=== PATIENT | male | born 1990 | race Caucasian/White ===

== ENCOUNTER 2023-02-02 13:57 | Emergency (ER) | payer SELFPAY ==
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
[2023-02-02] MEDS ORDERED: KETOROLAC 30 MG/ML INJ ONE (15:50)
[2023-02-02 16:26] VITALS: BP 141/98; TEMP 97.8; O2SAT 97
== END 2023-02-02 16:16 | disposition home or self-care (01) ==
LOC: ER 13:57
DX: M25.572 Pain in left ankle and joints of left foot (principal); S82.452 Displaced comminuted fracture of shaft of left fibula; K59.00 Constipation, unspecified
CPT/HCPCS: 96372; 99284

== ENCOUNTER → 2023-07-16 | Emergency (ER) | payer SELFPAY ==
[~2023-07-16] MED LIST: FENTANYL CITR 100 MCG/2 ML ONE; MORPHINE 4 MG/ML SYR ONE; ONDANSETRON 4 MG/2 ML VIAL ONE
--- OUTSIDE RECORDS SUMMARY | 2023-07-16 19:49 | XMS REPORT | Continuity of Care Document ---
Author Name Unknown Address [address] [facility] [facility] [place] [id number] [facility] thconnect Address [address] [facility] [place] [address] Care Team Providers Care Network Design Architect Name Role Phone SRINI MARQUEZ Attending Clinician Unavailable Encounters Start Date/Time End Date/Time Encounter Type Admission Type Attending Clinicians Care Facility Care Department Encounter ID Source 2020-07-22 15:15:00 2020-07-22 19:12:00 Emergency E SRINI MARQUEZ [facility] [id number] [facility]
--- NOTE | 2023-07-16 20:24 | ER ---
Nurse's Notes [facility] Name: Robbin Harris Age: 32 yrs Sex: Male : 1990 Arrival Date: 07/16/2023 Time: 19:45 Bed 13 Private MD: Diagnosis: Laceration to left radial artery Presentation: 07/16 19:51 Chief complaint: Patient states: I was playing with my knife and accidentally cut my jb4 wrist. Arterial bleed noted. Pressure dressing applied. Coronavirus screen: At this time, the client does not indicate any symptoms associated with coronavirus-19. Ebola Screen: No symptoms or risks identified at this time. Complicating Factors: There are no complicating factors for this patient. Initial Sepsis Screen: Does the patient meet any 2 criteria? No. Patient's initial sepsis screen is negative. Does the patient have a suspected source of infection? No. Patient's initial sepsis screen is negative. Risk Assessment: Do you want to hurt yourself or someone else? Patient reports no desire to harm self or others. Onset of symptoms was July 16, 2023. Transition of care: patient was not received from another setting of care. 19:51 Method Of Arrival: Ambulatory jb4 19:51 Acuity: YAZMIN 3 jb4 Historical: - Allergies: 19:52 No Known Allergies; jb4 - PMHx: 19:52 None; jb4 - PSHx: 19:52 None; jb4 - Immunization history:: Adult Immunizations unknown. - Social history:: Smoking status: Patient reports the use of cigarette tobacco products, Patient uses alcohol, patient/guardian reports recent binge of alcohol consumption. - Family history:: not pertinent. Screenin:17 [facility] ED Fall Risk Assessment (Adult) History of falling in the last 3 months, me1 including since admission No falls in past 3 months (0 pts) Confusion or Disorientation No (0 pts) Intoxicated or Sedated No (0 pts) Impaired Gait No (0 pts) Mobility Assist Device Used No (0 pt) Altered Elimination No (0 pt) Score/Fall Risk Level 0 - 2 = Low Risk Oriented to surroundings, Provided non-skid footwear, Hourly rounding (assess needs \T\ fall precautionary measures) done. Abuse screen: Denies threats or abuse. Nutritional screening: No deficits noted. Tuberculosis screening: No symptoms or risk factors identified. Assessment: 20:18 Reassessment: No further bleeding noticed after pressure bandage applied. jb4 Cardiovascular: Capillary refill < 3 seconds in left fingers. 21:17 General: Appears uncomfortable, unkempt, well developed, well nourished, Behavior is me1 calm, cooperative, appropriate for age, Smells of alcohol, Reports I was playing with my knife and accidentally cut my wrist. Pain: Complains of pain in left wrist Pain does not radiate. Pain currently is 10 out of 10 on a pain scale. Quality of pain is described as sharp, throbbing, Pain began suddenly, Is continuous. Neuro: Level of Consciousness is awake, alert, obeys commands, Oriented to person, place, time, situation, Appropriate for age. Cardiovascular: Capillary refill < 3 seconds Patient's skin is warm and dry. Cardiovascular: Respiratory: Airway is patent Respiratory effort is even, unlabored, Respiratory pattern is regular, symmetrical. Derm: Wound noted left wrist Wound is stab wound- accidentally self inflicted. Musculoskeletal: Capillary refill < 3 seconds. Injury Description: Laceration is clean, bleeding profusely, pressure dressing applied upon arrival. Bleeding stopped. 21:22 Reassessment: Pressure dressing loosened per pt's request. Pressure held at laceration jb4 site. Pt reports decrease in pain, discoloration no longer present. Pressure dressing reapplied. Vital Signs: 19:51 BP 143 / 96; Pulse 87; Resp 16; Pulse Ox 100% on R/A; Pain 8/10; jb4 20:00 BP 142 / 98; Pulse 81; Resp 18; Pulse Ox 100% on R/A; me1 20:45 BP 122 / 92; Pulse 77; Resp 17; Pulse Ox 100% on R/A; me1 21:15 BP 131 / 90; Pulse 76; Resp 20; Pulse Ox 100% on R/A; me1 19:51 Pain Scale: Adult jb4 ED Course: 19:47 Patient arrived in ED. jj6 19:52 Triage completed. jb4 19:52 Arm band placed on right wrist. jb4 19:59 Eric Hirsch MD is Attending Physician. rt 20:01 Christa Elizalde RN is Primary Nurse. me1 20:13 Inserted saline lock: 18 gauge in right antecubital area, using aseptic technique. mc5 Blood collected. 20:14 Initiated transfer with [facility] at [facility]. rv1 20:[address] Fraga to [facility]. rv1 21:17 Patient has correct armband on for positive identification. Bed in low position. Call me1 light in reach. Side rails up X 1. Provided Education on: POC. Verbalized understanding. . 21:17 No provider procedures requiring assistance completed. me1 21:25 Patient transferred, IV remains in place. me1 Administered Medications: 20:19 Drug: fentaNYL (PF) IVP 100 mcg IVP once Route: IVP; Site: right antecubital; me1 20:49 Follow up: Response: No adverse reaction; Pain is unchanged, physician notified me1 20:48 Drug: morphine IVP or IV 4 mg IVP once over 4 mins Route: IVP; Infused Over: 4 mins; me1 Site: right antecubital; 21:21 Follow up: Response: No adverse reaction; Pain is decreased me1 20:48 Drug: Ondansetron IVP 4 mg IVP once; over 2 minutes Route: IVP; Site: right antecubital;me1 21:22 Follow up: Response: No adverse reaction me1 Medication: 21:17 VIS not applicable for this client. me1 Outcome: 20:24 ER care complete, transfer ordered by . rt 21:25 Transferred by ground EMS to [facility], Transfer form me1 completed. Note: layaway clerk. Report given to KRISTINA Lee. 21:25 Condition: stable 21:25 Instructed on the need for transfer, 21:35 Patient left the ED. me1 Signatures: Chang Jama RN RN jb4 Shaylee [email or web address] Eric Hirsch MD MD rt Priscila Evans rv1 Christa Elizalde RN RN me1 Marii Segal mc5 Corrections: (The following items were deleted from the chart) 19:55 19:52 Allergies: Aspirin; jb4 4 21:00 19:51 Chief complaint: Patient states: I was playing with my knife and accidentally cut me1 my wrist. Arterial bleed noted. Pressure dressing applied. jb4 21:17 19:51 Chief complaint: Patient states: I was playing with my knife and accidentally cut me1 my wrist. Arterial bleed noted. Pressure dressing applied. me1
--- NOTE | 2023-07-16 20:24 | EDPHYS ---
Physician Documentation [facility] Name: Robbin Harris Age: 32 yrs Sex: Male : 1990 Arrival Date: 07/16/2023 Time: 19:45 Bed 13 Private MD: ED Physician Eric Hirsch HPI: 07/16 20:37 This 32 yrs old Male presents to ER via Ambulatory with complaints of Laceration. rt 20:37 Patient presents to the ED with injury to the left wrist. Patient was reported playing rt with a knife when it punctured his left wrist causing some pain and bleeding. He wrapped it up in a T-shirt, came for further evaluation. Denies any complaint this time, symptoms are moderate severity, no other aggravating relieving factors.. Historical: - Allergies: 19:52 No Known Allergies; jb4 - PMHx: 19:52 None; jb4 - PSHx: 19:52 None; jb4 - Immunization history:: Adult Immunizations unknown. - Social history:: Smoking status: Patient reports the use of cigarette tobacco products, Patient uses alcohol, patient/guardian reports recent binge of alcohol consumption. - Family history:: not pertinent. ROS: 20:37 Constitutional: Negative for fever, chills, and weight loss, Cardiovascular: Negative rt for chest pain, palpitations, and edema, Respiratory: Negative for shortness of breath, cough, wheezing, and pleuritic chest pain, Abdomen/GI: Negative for abdominal pain, nausea, vomiting, diarrhea, and constipation, 20:37 MS/extremity: Positive for laceration, Negative for decreased range of motion, Exam: 20:43 Constitutional: This is a well developed, well nourished patient who is awake, alert, rt and in no acute distress. Head/Face: Normocephalic, atraumatic. Chest/axilla: Normal chest wall appearance and motion. Nontender with no deformity. No lesions are appreciated. Cardiovascular: Regular rate and rhythm with a normal S1 and S2. No gallops, murmurs, or rubs. Normal PMI, no JVD. No pulse deficits. Respiratory: Lungs have equal breath sounds bilaterally, clear to auscultation and percussion. No rales, rhonchi or wheezes noted. No increased work of breathing, no retractions or nasal flaring. Abdomen/GI: Soft, non-tender, with normal bowel sounds. No distension or tympany. No guarding or rebound. No evidence of tenderness throughout. 20:43 Musculoskeletal/extremity: Laceration to the anterior aspect of the left wrist, pulsatile bleeding noted over the radial artery, ulnar arteries intact, capillary refill less than 3. Vital Signs: 19:51 BP 143 / 96; Pulse 87; Resp 16; Pulse Ox 100% on R/A; Pain 8/10; jb4 20:00 BP 142 / 98; Pulse 81; Resp 18; Pulse Ox 100% on R/A; me1 20:45 BP 122 / 92; Pulse 77; Resp 17; Pulse Ox 100% on R/A; me1 21:15 BP 131 / 90; Pulse 76; Resp 20; Pulse Ox 100% on R/A; me1 19:51 Pain Scale: Adult jb4 MDM: 20:00 Patient medically screened. rt 20:43 Differential diagnosis: Laceration, arterial bleed. Data reviewed: vital signs, nurses rt notes. Consideration of Admission/Observation Patient requires transfer to trauma center. Management of patient was discussed with the following: Discussed with accepting trauma surgeon. I considered the following discharge prescriptions or medication management in the emergency department Medications were administered in the Emergency Department. See MAR. Test considered but Not performed: X-ray: With suspicion for bony abnormality, x-ray not indicated. Counseling: I had a detailed discussion with the patient and/or guardian regarding the historical points, exam findings, and any diagnostic results supporting the discharge/admit diagnosis, the need to transfer to another facility. 07/16 20:09 Order name: CBC with Diff; Complete Time: 20:42 rt 07/16 20:09 Order name: CMP; Complete Time: 21:14 rt 07/16 20:09 Order name: Type And Screen; Complete Time: 21:14 rt Administered Medications: 20:19 Drug: fentaNYL (PF) IVP 100 mcg IVP once Route: IVP; Site: right antecubital; me1 20:49 Follow up: Response: No adverse reaction; Pain is unchanged, physician notified me1 20:48 Drug: morphine IVP or IV 4 mg IVP once over 4 mins Route: IVP; Infused Over: 4 mins; me1 Site: right antecubital; 21:21 Follow up: Response: No adverse reaction; Pain is decreased me1 20:48 Drug: Ondansetron IVP 4 mg IVP once; over 2 minutes Route: IVP; Site: right antecubital;me1 21:22 Follow up: Response: No adverse reaction me1 Disposition Summary: 07/16/23 20:24 Transfer Ordered Notes: Transfer Location: [facility] rt Reason: Higher level of care rt Condition: Fair rt Problem: new rt Symptoms: have improved rt Accepting Physician: (07/16/23 21:35) me1 Diagnosis - Laceration to left radial artery rt Forms: - Medication Reconciliation Form rt - SBAR form rt Signatures: Dispatcher [employer] Chang Thomas RN RN jb4 Eric Hirsch MD MD rt Christa Elizalde RN RN me1 Corrections: (The following items were deleted from the chart) 19:55 19:52 Allergies: Aspirin; jb4 jb4 21:35 20:24 rt me1
[2023-07-16 20:29] LABS: Absolute Lymphocytes (CBC) 2.7 K/uL (0.7-4.9); Hematocrit 37.5 % (39.6-49.0); Lymphocytes % 45.4 % (15.3-44.8); MCV 90.9 fL (80-100); MPV 7.4 fL (7.6-11.3); Platelets 223 thou/uL (152-406); RBC Red Blood Cell Count 4.13 M/uL (4.33-5.43)
[2023-07-16 20:51] LABS: Albumin 3.5 g/dL (3.4-5.0); Bilirubin Total 0.3 mg/dL (0.2-1.0); Potassium 3.4 mEq/L (3.5-5.1); Protein, Total 7.1 g/dL (6.4-8.2)
[2023-07-17 00:24] VITALS: O2SAT 100
[2023-07-17 00:54] VITALS: BP 131/90
== END ==
LOC: ER 19:45
DX: S55.112A Laceration of radial artery at forearm level, left arm, initial encounter (principal); Z72.0 Tobacco use
CPT/HCPCS: 36415; 80053; 85025; 86850; 86900; 86901; 96374; 96375; 99285; J2405; J3010

== ENCOUNTER 2024-02-16 18:10 | Emergency (ER) | payer OTHER ==
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
[2024-02-16] MEDS ORDERED: KETOROLAC 30 MG/ML INJ ONE (18:24)
--- NOTE | 2024-02-16 19:07 | RAD REPORT ---
EXAM DESCRIPTION: RAD - Humerus Left - 02/16/2024 6:56 pm CLINICAL HISTORY: fall down stairs;Pain COMPARISON: <Comparisons> FINDINGS: Mild to moderate AC joint degenerative changes. No acute fracture or dislocation seen.
--- NOTE | 2024-02-16 19:09 | RAD REPORT ---
EXAM DESCRIPTION: RAD - Hip Right 2 View - 02/16/2024 6:56 pm CLINICAL HISTORY: fall down stairs;Pain COMPARISON: <Comparisons> FINDINGS: No acute fracture or dislocation is seen.
--- NOTE | 2024-02-16 19:19 | EDPHYS ---
Physician Documentation [facility] Name: Robbin Harris Age: 33 yrs Sex: Male : 1990 Arrival Date: 02/16/2024 Time: 18:10 Bed 11 Private MD: ED Physician Eric Gilliam HPI: 02/15 18:30 This 33 yrs old Male presents to ER via Ambulatory with complaints of Hip Pain. cp 18:30 Details of fall: The patient fell from a height, multiple stairs. cp 18:30 Onset: The symptoms/episode began/occurred 2 day(s) ago. Associated injuries: The cp patient sustained right hip, painful injury, right upper arm, painful injury. Historical: - Allergies: 18:23 No Known Allergies; kc6 - Home Meds: 18:23 None [Active]; kc6 - PMHx: 18:23 None; kc6 - PSHx: 18:23 None; kc6 - Immunization history:: Client reports having NOT received the Covid vaccine. Last tetanus immunization: up to date Flu vaccine is not up to date. - Infectious Disease History:: Denies. - Social history:: Smoking status: Reported history of juuling and/or vaping. ROS: 18:45 MS/extremity: Positive for pain, of the left upper arm and right hip, Negative for cp decreased range of motion, deformity, paresthesias, 18:45 Neuro: Negative for altered mental status, headache, numbness, weakness, cp 18:45 Constitutional: Negative for body aches, chills, fever, poor PO intake, cp 18:45 Neck: Negative for pain with movement, pain at rest, stiffness, tenderness, bony tenderness, 18:45 Cardiovascular: Negative for chest pain, 18:45 Respiratory: Negative for cough, shortness of breath, wheezing, 18:45 Abdomen/GI: Negative for abdominal pain, vomiting, diarrhea, constipation, 18:45 Back: Negative for pain at rest, pain with movement, 18:45 All other systems are negative, Exam: 18:50 Constitutional: The patient appears in no acute distress, alert, awake, non-toxic, well cp developed, well nourished, uncomfortable, 18:50 Head/Face: Normocephalic, atraumatic. cp 18:50 Neck: C-spine: vertebral tenderness, is not appreciated, crepitus, is not appreciated, ROM/movement: is normal, is supple, without pain, no range of motions limitations, 18:50 Chest/axilla: Inspection: normal, Palpation: is normal, no crepitus, no tenderness, 18:50 Cardiovascular: Rate: normal, 18:50 Respiratory: the patient does not display signs of respiratory distress, Respirations: normal, no use of accessory muscles, no retractions, labored breathing, is not present, Breath sounds: are clear throughout, no decreased breath sounds, no stridor, no wheezing, 18:50 Abdomen/GI: Inspection: abdomen appears normal, Palpation: abdomen is soft and non-tender, in all quadrants, 18:50 Back: no vertebral tenderness on exam, 18:50 Musculoskeletal/extremity: Extremities: grossly normal except: noted in the left upper arm: pain, tenderness, There is no evidence of deformity, noted in the right hip: pain, tenderness, no evidence of decreased ROM, deformity, 18:50 Neuro: Orientation: to person, place \T\ time. Mentation: is normal, Sensation: is normal, Gait: is steady, Vital Signs: 18:21 BP 143 / 85; Pulse 80; Resp 16 S; Pulse Ox 98% on R/A; Weight 92.99 kg (R); Height 6 kc6 ft. 0 in. (R); Pain 10/10; 18:21 Body Mass Index 27.80 (92.99 kg, 182.88 cm) kc6 18:21 Pain Scale: Adult kc6 MDM: 18:20 Patient medically screened. cp 19:18 Data reviewed: vital signs, nurses notes, radiologic studies, plain films. cp 19:18 Differential diagnosis: contusion, fracture, multiple trauma. I considered the cp following discharge prescriptions or medication management in the emergency department Medications were administered in the Emergency Department. See MAR. Counseling: I had a detailed discussion with the patient and/or guardian regarding the historical points, exam findings, and any diagnostic results supporting the discharge/admit diagnosis, lab results, radiology results, to return to the emergency department if symptoms worsen or persist or if there are any questions or concerns that arise at home. Response to treatment: the patient's symptoms have markedly improved after treatment, and as a result, I will discharge patient. 02/15 18:22 Order name: XRAY Hip RIGHT 2 view; Complete Time: 19:23 cp 02/15 19:23 Interpretation: Report reviewed. cp 02/15 18:22 Order name: XRAY Humerus LEFT; Complete Time: 19:23 cp 02/15 19:23 Interpretation: Report reviewed. cp Administered Medications: 18:29 Drug: Ketorolac IM 30 mg IM once Route: IM; Site: left deltoid; kc6 19:36 Follow up: Response: No adverse reaction al5 Disposition Summary: 02/16/24 19:19 Discharge Ordered Notes: Location: Home cp Problem: new cp Symptoms: have improved cp Condition: Stable cp Diagnosis - Fall (on) (from) unspecified stairs and steps cp - Pain in right hip cp - Pain in left upper arm cp Followup: cp - With: Private Physician - When: 2 - 3 days - Reason: Worsening of condition Discharge Instructions: - Discharge Summary Sheet cp - Musculoskeletal Pain cp - Hip Pain cp Forms: - Medication Reconciliation Form cp - Antibiotic Education cp - Prescription Opioid Use cp - Patient Portal Instructions cp - Leadership Thank You Letter cp Prescriptions: - Diclofenac Sodium 75 mg Oral Tablet Sustained Release - take 1 tablet ORAL route 2 times per day; 30 tablet; Refills: 0, Product cp Selection Permitted Signatures: Dispatcher [employer] EDAlin Fournier PA PA cp Campbell, Kaitlyn RN RN kc6 Brenda Kang RN al5
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
[2024-02-16 19:56] VITALS: BP 143/85; O2SAT 98
== END 2024-02-16 19:37 | disposition home or self-care (01) ==
LOC: ER 18:10
DX: M25.551 Pain in right hip (principal); M79.622 Pain in left upper arm; W10.9XXA Fall (on) (from) unspecified stairs and steps, initial encounter
CPT/HCPCS: 96372; 99284